=== PATIENT | male | born 1990 | race Caucasian/White ===

== ENCOUNTER → 2021-04-08 | Outpatient (CLI) | payer OTHER | LOC: COL.RAD 13:31 | DX: R41.89 Other symptoms and signs involving cognitive functions and awareness (principal); G47.19 Other hypersomnia; G44.221 Chronic tension-type headache, intractable ==

== ENCOUNTER → 2021-04-10 | Outpatient (CLI) | payer OTHER | LOC: COL.CARD 12:36 | DX: R40.4 Transient alteration of awareness (principal); G44.221 Chronic tension-type headache, intractable ==